=== PATIENT | female | born 1990 | race Caucasian/White ===

== ENCOUNTER 2022-03-20 22:37 | Emergency (ER) | payer MEDICAID, SELFPAY ==
[2022-03-20 22:46] VITALS: BP 136/86; PULSE 131; RESP 20; TEMP 37.1; O2SAT 96; BMI 32.8
--- NOTE | 2022-03-20 23:02 | ED.GENADULT ---
HPI - General Adult General Stated complaint: Cough,fever,headache Time Seen by Provider: 03/20/22 22:53 History of Present Illness HPI narrative: This 32-year-old female comes in with her son stating both are having similar symptoms of upper respiratory infection including cough, fever, nasal congestion. These symptoms started about 3 days ago. Related Data Home Medications Medication Instructions Recorded Confirmed sertraline 100 mg tablet 100 mg PO Q24H 03/20/22 03/20/22 Allergies Allergy/AdvReac Type Severity Reaction Status Date / Time No Known Drug Allergies Allergy Verified 03/20/22 22:50 Review of Systems Status of ROS: Reports: 10 or more systems reviewed and unremarkable except as noted in History and below Narrative: Constitutional: No fevers, no weight gain or loss. Eyes: No discharge. No vision changes. HENT: No congestion, no sore throat, no ear pain. Cardiovascular: No chest pain, no palpitations. Respiratory: No shortness of breath, no wheezes. Frequent cough. Gastrointestinal: No abdominal pain, no vomiting, no diarrhea. Genitourinary: No dysuria, no hematuria. Musculoskeletal: Normal range of motion. Skin: No rashes, no pruritis. Neurological: No dizziness, weakness, sensory change, speech change. Endo/Heme/Allergies: No bruising or bleeding. No polydipsia. Pysch: no suicidality, no anxiety, no insomnia. All other systems reviewed and are negative. Exam Narrative: Exam Narrative: Constitutional: Well-developed, well-nourished, no acute distress. HEENT: Normocephalic, atraumatic. Neck: Normal range of motion. Nontender. Supple. Heart: Regular. No murmurs. Normal rate. Intact distal pulses. Lungs: Clear to auscultation. No chest discomfort. No wheezes, rhonchi, or rales. Abdomen: Normal bowel sounds. Nontender. No rebound tenderness. Genitalia: Deferred. Back: No midline tenderness. Normal range of motion. Extremities: Normal range of motion. No injury. Skin: Intact. No rash. Warm. No erythema or pallor. Neurologic: No altered sensation. No weakness. Alert and oriented. Psychiatric: No suicidality. No anxiety or depression. No insomnia. Nursing notes and vitals signs are reviewed. Const: Vital Signs, click to edit/add: Vital Signs - 24 hr 03/20/22 22:46 Temperature 98.8 F Pulse Rate [Pulse Oximeter] 131 H Respiratory Rate 20 Blood Pressure [Le ft Upper Arm] 136/86 Pulse Oximetry 96 Oxygen Delivery Me thod Room Air Course Vital Signs Vital signs: Initial Vital Signs Temperature 98.8 F 03/20/22 22:46 Temperature Source Temporal Artery Scan 03/20/22 22:46 Pulse Rate 131 H 03/20/22 22:46 Pulse Rhythm 03/20/22 22:46 Respiratory Rate 20 03/20/22 22:46 Blood Pressure 136/86 03/20/22 22:46 Blood Pressure Mean 102 03/20/22 22:46 Blood Pressure Position Sitting 03/20/22 22:46 Pulse Oximetry 96 03/20/22 22:46 Oxygen Delivery Method 03/20/22 22:46 Vital Signs Temperature 98.8 F 03/20/22 22:46 Pulse Rate 131 H 03/20/22 22:46 Respiratory Rate 20 03/20/22 22:46 Blood Pressure 136/86 03/20/22 22:46 Pulse Oximetry 96 03/20/22 22:46 Oxygen Delivery Method 03/20/22 22:46 Temperature 98.8 F 03/20/22 22:46 Pulse Rate 131 H 03/20/22 22:46 Respiratory Rate 20 03/20/22 22:46 Blood Pressure 136/86 03/20/22 22:46 Pulse Oximetry 96 03/20/22 22:46 Oxygen Delivery Method 03/20/22 22:46 Medical Decision Making MDM Narrative Medical decision making narrative: This patient comes in with upper respiratory symptoms as described above. Testing for COVID and influenza returned positive for influenza A. This patient is right on the borderline for time where by Tamiflu can be helpful. She did receive a prescription for this to be retrieved from the [facility]. I encouraged use of [id number] medicines also as needed and directed. Lab Data Labs: Lab Results 03/20/22 Range/Units 22:46 SARS-CoV-2 (PCR) Negative SARS-CoV-2 (Negative) Influenza Type A (PCR) POSITIVE PCR FLU A A (Negative) Influenza Type B (PCR) Negative PCR FLU B (Negative) RSV (PCR) Negative PCR RSV (Negative) Discharge Plan Discharge Clinical Impression: Influenza A Patient Disposition: Home, Self-Care Condition: Stable Additional Instructions: Take medication as prescribed. Follow up with MD or return if worsening. Prescriptions: No Action sertraline 100 mg tablet 100 mg PO Q24H Follow Up/Referrals: Provider,Not a Local [Primary Care Provider] - Stand Alone Forms: [facility] Info Instructions
[2022-03-20] MEDS: dexAMETHasone 10 MG/ML inj PO (23:11)
[2022-03-20 23:33] LABS: PCR FLU A POSITIVE PCR FLU A (Negative); PCR FLU B Negative PCR FLU B (Negative); PCR RSV Negative PCR RSV (Negative)
[2022-03-20 23:45] LABS: SARS PCR* Negative SARS-CoV-2 (Negative)
== END 2022-03-21 00:31 | disposition home or self-care (01) ==
PROVIDERS: Emergency Provider Emergency Medicine Emergency Medical Services
DX: J10.1 Influenza due to other identified influenza virus with other respiratory manifestations (principal)
CPT/HCPCS: 87502; 87634; 87635; 99284; J1100